=== PATIENT | female | born 1970 | race Caucasian/White ===

== ENCOUNTER 2017-03-29 15:04 | Emergency (ER) | payer SELFPAY ==
[2017-03-29 15:20] VITALS: BP 114/75; TEMP 97.4; O2SAT 99
--- NOTE | 2017-03-29 15:27 | ED.PDOC ---
History of Present Illness - General Chief Complaint: General Stated Complaint: DAVIS,cough,body aches Time Seen by Provider: 03/29/17 15:22 Source: patient Exam Limitations: no limitations - History of Present Illness Initial Comments: Awilda Manuel 46 y/o female stated that she had non productive cough,body aches for the last 3 days.Denies ill contact no fever,no N/V/D. Timing/Duration: other - 3 days Severity: moderate Improving Factors: nothing Worsening Factors: nothing Associated Symptoms: other - see hpi Allergies/Adverse Reactions: Allergies NO KNOWN ALLERGY Allergy (Verified 03/29/17 15:20) Home Medications: Ambulatory Orders NK [NK] 03/29/17 Past Medical History (General) - Patient Medical History Hx Stroke: No Hx Congestive Heart Failure: No Hx Diabetes: No Surgical History: appendectomy, other - hyaterectomy - Vaccination History Hx Influenza Vaccination: No - Social History Hx Tobacco Use: Yes Years Tobacco Use: 24 - trying to quit Cigarettes Packs Per Day: 1 Hx Physical Abuse: No Hx Emotional Abuse: No Hx Suspected Abuse: No - Activities of Daily Living Patient Lives Alone: No Family Medical History - Family History Mother Family History: Unknown Living Status: Unknown Physical Exam - Physical Exam General Appearance: Alert, Comfortable, No apparent distress Eye Exam: bilateral normal Ears, Nose, Throat: hearing grossly normal, normal ENT inspection, normal pharynx, nasal congestion Neck: non-tender, full range of motion, supple Respiratory: chest non-tender, lungs clear, normal breath sounds, no respiratory distress Cardiovascular/Chest: normal peripheral pulses, regular rate, rhythm, no murmur Gastrointestinal/Abdominal: normal bowel sounds, non tender, soft, no organomegaly Back Exam: no CVA tenderness, no vertebral tenderness Extremity: non-tender, normal inspection, no calf tenderness Neurologic: no motor/sensory deficits, alert, oriented x 3 Skin Exam: normal color, warm/dry Progress - Progress Progress: 03/29/17 16:29 flu swab A/B negative - EKG/XRAY/CT XRAY: chest - no acute abnormalities Departure - Departure Clinical Impression: Viral upper respiratory tract infection Time of Disposition: 16:30 Disposition: Discharge to Home or Self Care Condition: Good Departure Forms: ED Discharge - Pt. Copy, Patient Portal Self Enrollment Instructions: DI for Viral Upper Respiratory Infection -- Adult Diet: other - Increase oral fluid intake Home Medications: Ambulatory Orders NK [NK] 03/29/17 Additional Instructions: May take over the counter cough medicine Delsym Lquid 2 teaspoons am/pm and Benadryl capsule 1-2 capsule at bedtime;Aleve 1-2 tablets am/pm for pain Nasal saline spray 3 sprays each nostril as needed for nasal congestion /drainage
--- NOTE | 2017-03-29 15:52 | RAD ---
EXAM DESCRIPTION: Chest,1 View CLINICAL HISTORY: cough COMPARISON: None Available. FINDINGS: Cardiomediastinal silhouette and pulmonary vascularity are within normal limits. Lungs are clear without focal consolidations. Bilateral costophrenic angles are sharp. No pneumothorax. Visualized osseous structures show no destructive lesions. IMPRESSION: No radiographic evidence for acute cardiopulmonary process. Electronically signed by: Graeme Kenney MD 03/29/2017 3:51 PM [employer]
== END 2017-03-29 16:43 | disposition home or self-care (01) ==
LOC: ER 15:04
DX: J06.9 Acute upper respiratory infection, unspecified (principal); F17.210 Nicotine dependence, cigarettes, uncomplicated